=== PATIENT | female | born 1985 | race Caucasian/White ===

== ENCOUNTER 2017-07-10 05:00 | Outpatient (CLI) | payer MEDICAID | END 2017-07-10 23:59 | disposition home or self-care (01) | LOC: D.OPS 05:00 → D.PAN 07:30 → EDSTATUS 07:30 → D.OPS 23:59 | DX: Z01.812 Encounter for preprocedural laboratory examination (principal); Z53.9 Procedure and treatment not carried out, unspecified reason ==